=== PATIENT | male | born 1955 | race Hispanic/Latino ===

== ENCOUNTER 2020-01-16 15:40 | Emergency (ER) | payer MEDICARE ==
[~2020-01-16] VITALS: Ht 170.2 cm; Wt 89.8 kg
[2020-01-16] MEDS ORDERED: FAMOTIDINE 20 MG/2 ML VIAL IV STA (15:59)
[2020-01-16] MEDS ORDERED: SODIUM CHLORIDE 0.9% 1000ML 1,000 ML IV SCH (16:00)
[2020-01-16] MEDS ORDERED: DONNATAL/LIDOCAINE/MAALOX 30 ML SUSP PO SCH (16:15)
[2020-01-16] MEDS ORDERED: SODIUM CHLORIDE 0.9% 1000ML 1,000 ML ONE (16:24)
[2020-01-16] MEDS ORDERED: BELLADONNA ALK/PHENOBARBITAL 5 ML UDC ONE (16:25)
[2020-01-16] MEDS ORDERED: MAGNESIUM/ALUMINUM/SIMETHICONE 30 ML UDC ONE ×2 (16:25→18:27)
[2020-01-16] MEDS ORDERED: LIDOCAINE VISC 2% SOLN 15 ML UDC ONE (16:25)
[2020-01-16] MEDS ORDERED: FAMOTIDINE 20 MG/2 ML VIAL IV ONE (16:26)
[2020-01-16] MEDS ORDERED: IOPAMIDOL 370 MG/ML 200 ML INFUS..BTL INJ ONE (17:05)
[2020-01-16] MEDS ORDERED: SODIUM CHLORIDE 0.9% 50ML 50 ML ONE (17:05)
--- NOTE | 2020-01-16 17:44 | Diagnostic Imaging Report ---
EXAM: CT Abdomen and Pelvis WITH intravenous contrast INDICATION: Abdominal pain COMPARISON: None. TECHNIQUE: Abdomen and pelvis were scanned utilizing a multidetector helical scanner from the lung base to the pubic symphysis after administration of IV contrast. Coronal and sagittal reformations were obtained. Routine protocol was performed. Scan was performed during portal venous phase. IV CONTRAST: 100mL of Isovue 370 ORAL CONTRAST: Water RADIATION DOSE: Total DLP: 991 mGy*cm Dose modulation, iterative reconstruction, and/or weight based adjustment of the mA/kV was utilized to reduce the radiation dose to as low as reasonably achievable. FINDINGS: LOWER THORAX: Bibasilar dependent subsegmental atelectasis. HEPATOBILIARY: No focal liver lesions. No biliary ductal dilation. Unremarkable gallbladder. SPLEEN: No splenomegaly. PANCREAS: No focal masses or ductal dilatation. ADRENALS: No adrenal nodules. KIDNEYS/URETERS: No hydronephrosis, stones, or solid mass lesions. PELVIC ORGANS/BLADDER: Prostatomegaly to 5.4 cm with posterior indentation of the bladder. PERITONEUM / RETROPERITONEUM: No free air or fluid. LYMPH NODES: No lymphadenopathy. VESSELS: Mild scattered atherosclerotic calcifications of the nonaneurysmal abdominal aorta and major branches. GI TRACT: Diverticulosis without CT evidence of diverticulitis. No abnormal bowel thickening. No bowel obstruction. Normal appendix. BONES AND SOFT TISSUES: No acute osseous injury. No suspicious lytic or blastic lesions. Degenerative changes of the visualized spine. IMPRESSION: No acute findings in the abdomen or pelvis. Diverticulosis without CT evidence of diverticulitis. Prostatomegaly. Signed by: Willy Brian MD on 01/16/2020 5:41 PM
--- NOTE | 2020-01-16 18:25 | NUR ---
INTERPERRECTED COMPUTER LINKED USED BY RN MULTIPLE TIMES FOR TRANSLATION
[2020-01-16] MEDS ORDERED: DICYCLOMINE HCL20 MG PO (18:26)
[2020-01-16] MEDS ORDERED: PANTOPRAZOLE SO40 MG PO (18:26)
== END 2020-01-16 18:30 | disposition home or self-care (01) ==
LOC: FSED 15:40
DX: R10.84 Generalized abdominal pain (principal); K29.70 Gastritis, unspecified, without bleeding; K21.0 Gastro-esophageal reflux disease with esophagitis
CPT/HCPCS: 36415; 74177; 80053; 81003; 82553; 83690; 84484; 85025; 93005; 99284; J7030; Q9967